=== PATIENT | male | born 1980 | race Hispanic/Latino ===

== ENCOUNTER 2017-09-07 19:12 | Emergency (ER) | payer SELFPAY ==
[2017-09-07] MEDS ORDERED: Dextrose 50% Abboject 50 ML SYRINGE ONE (20:17)
[2017-09-07 20:59] LABS: #Eosinphils 0.1 thou/uL (0.0-0.7); #Lymphocytes 1.8 thou/uL (1.20-3.40); #Monocytes 0.5 thou/uL (0.11-0.59); #Neutrophils 4.2 thou/uL (1.40-6.50); %Basophils 0.2 % (0.0-1.0); %Eosinophils 0.9 % (0.0-10.0); %Lymphocytes 27.1 % (21.0-51.0); %Monocytes 7.4 % (0.0-10.0); %Neutrophils 64.5 % (42.0-75.0); Hemoglobin 14.3 g/dL (14.0-18.0); Mean Corpuscular HGB CONC 34.3 g/dL (32.0-36.0); Mean Corpuscular Hemoglobin 32.1 pg (27.0-31.0); Mean Corpuscular Volume 93.5 fl (80.0-94.0); Mean Platelet Volume 9.3 fL (7.4-10.4); Platelet Count 146 thou/uL (130-400); RBC Distribution Width 11.2 % (11.5-14.5); Red Blood Cell (RBC) Count 4.45 mill/uL (4.70-6.10); White Blood Cell (WBC) Count 6.5 thou/uL (4.8-10.8)
[2017-09-07 21:02] LABS: Bilirubin Negative (Negative); Blood, Urine Negative (Negative); Clarity CLEAR (Clear); Glucose, Urine (Dipstick) >=1000 mg/dL (Negative); Leukocyte Negative (Negative); Nitrite Negative (Negative); Protein, Urine (Dipstick) Negative (Neg-Trace); Specific Gravity, Urine 1.036 (1.002-1.036); Urobilinogen 0.2 mg/dL (0.2-1.0)
[2017-09-07 21:11] LABS: Base Excess-Venous -1.2 mmol/L (-30.0-30.0); Bicarbonate (HCO3v) 23.2 mmol/L (1.0-85.0); CO2 Tension (PvCO2) 37.1 mmHg (41.0-51.0); Calcium, Ionized 1.05 mmol/L (1.12-1.32); Hemoglobin - Calc 13.8 g/dL (12.0-18.0); O2 Tension (PvO2) 50.2 mmHg (35.0-45.0); Potassium 4.1 mmol/L (3.4-4.7); T. Carbon Dioxide 24.4 mmol/L (1.0-85.0); pH (Venous) 7.404 (7.35-7.45); vO2 Saturation-calc 85.5 % (0.0-100.0)
[2017-09-07 21:20] LABS: ALT (SGPT) 39 U/L (8-55); AST (SGOT) 20 U/L (5-34); Albumin 4.1 g/dL (3.5-5.0); Alkaline Phosphatase 112 U/L (40-150); Anion Gap 13 mmol/L (10-20); BUN (Urea Nitrogen) 16 mg/dL (8.9-20.6); Bilirubin, Total 0.5 mg/dL (0.2-1.2); Calc. Creatinine Clearance 0 mL/min (70-130); Calcium 8.9 mg/dL (7.8-10.44); Carbon Dioxide 24 mmol/L (22-29); Chloride 102 mmol/L (98-107); Estimated GFR-MDRD 70; Globulin 2.6 g/dL (2.4-3.5); Glucose 532 mg/dL (70-105); Potassium 4.2 mmol/L (3.5-5.1); Protein, Total 6.7 g/dL (6.0-8.3); Sodium 135 mmol/L (136-145)
[2017-09-07] MEDS ORDERED: Insulin Regular 300 UNITS/3 ML VIAL ONE (21:43)
[2017-09-07] MEDS ORDERED: Fluconazole 100 MG TAB PO SCH (21:45)
== END 2017-09-07 22:57 | disposition home or self-care (01) ==
LOC: ERS 19:12
DX: B37.42 Candidal balanitis (principal); E11.9 Type 2 diabetes mellitus without complications
CPT/HCPCS: 36415; 36416; 80053; 81003; 82010; 82330; 82803; 85025; 96374; J1815